=== PATIENT | male | born 1980 | race Caucasian/White ===

== ENCOUNTER 2016-11-25 17:19 | Emergency (ER) | payer OTHER ==
[~2016-11-25 17:19] MED LIST: AUGM875T PO; CYCL1TAB29 PO; PERC5TAB12 PO
[2016-11-25 17:25] VITALS: BP 154/102; PULSE 102; RESP 0; RESP 18; TEMP 98.4
[2016-11-25] MEDS ORDERED: PERC7.5T13 PO ×2 (17:43→22:06)
[2016-11-25] MEDS ORDERED: TAMS0.4C4 PO (17:43)
[2016-11-25] MEDS ORDERED: LISI10TA3 PO (17:43)
[2016-11-25 17:44] VITALS: BP 152/87; PULSE 99; RESP 18; O2SAT 100
[2016-11-25] MEDS ORDERED: SODIUM CHLOR 0.9% 1000 ML INJ 1,000 ML IV SCH (17:59)
[2016-11-25] MEDS ORDERED: KETOROLAC TROMETHAMINE 30 MG/ML (IVP) VIAL IVP ONE (18:00)
[2016-11-25] MEDS ORDERED: SODIUM CHLORIDE 0.9% FLUSH 10 ML FLUSH IV FLUSH PRN (18:00)
[2016-11-25] MEDS ORDERED: ONDANSETRON HCL 4 MG/2 ML VIAL IVP ONE (18:00)
--- NOTE | 2016-11-25 18:11 | PD ---
HPI Chief Complaint: Flank/Kidney Pain Time Seen by Provider: 17:52 Travel History International Travel<30 days: No Contact w/Intl Traveler<30days: No Traveled to known affect area: No History of Present Illness HPI 36yo M with PMH of HTN presents to the ED with c/o bilateral back pain that radiates to the lower abdomen for 3 days. States pain is intermittent and associated with dysuria, hematuria. Pt saw his PMD 2 days ago and was given oxycodone which helped with the pain. States he finished his last oxycodone this morning and was told to come to ED if still in pain for CT scan. Pt was also given flomax. Denies any fever, chest pain, sob, n/v, testicular pain, penile discharge or rash. PFSH Past Medical History Diminished Hearing: No Hypertension: Yes (controlled with meds) Musculoskeletal: Yes (back) Tetanus Vaccination: < 5 Years Influenza Vaccination: No Social History Alcohol Use: Yes Tobacco Use: Yes (1 ppd) Substance Use: No Allergies-Medications (Allergen,Severity, Reaction): Coded Allergies: No Known Allergies (Unverified , 11/25/16) Reported Meds & Prescriptions Reported Meds & Active Scripts Active Ibuprofen 800 Mg Tab 800 Mg PO TID Prochlorperazine Maleate 10 Mg Tab 10 Mg PO Q6H PRN Percocet (Oxycodone-Acetaminophen) 7.5-325 mg Tab 1 Tab PO Q4H PRN Reported Percocet (Oxycodone-Acetaminophen) 7.5-325 mg Tab 1 Tab PO Q6H PRN Tamsulosin (Tamsulosin HCl) 0.4 Mg Cap Unknown Dose PO HS Lisinopril 10 Mg Tab 10 Mg PO DAILY Review of Systems Except as stated in HPI: all other systems reviewed are Neg Physical Exam Narrative GENERAL: 36yo M in mild distress. SKIN: Focused skin assessment warm/dry. HEAD: Atraumatic. Normocephalic. CARDIOVASCULAR: Regular rate and rhythm. No murmur appreciated. RESPIRATORY: No accessory muscle use. Clear to auscultation. Breath sounds equal bilaterally. GASTROINTESTINAL: Abdomen soft, +TTP suprapubic, bilateral lower abdomen. No rebound tenderness or guarding. BACK: +CVA right. MUSCULOSKELETAL: No obvious deformities. No clubbing. No cyanosis. No edema. NEUROLOGICAL: Awake and alert. No obvious cranial nerve deficits. Motor grossly within normal limits. Normal speech. PSYCHIATRIC: Appropriate mood and affect; insight and judgment normal. Data Data Last Documented VS Vital Signs Date Time Temp Pulse Resp B/P (MAP) Pulse Ox O2 Delivery O2 Flow Rate FiO2 11/25/16 22:46 76 20 139/74 (95) 98 11/25/16 19:30 98.6 11/25/16 17:44 Room Air Orders Orders Complete Blood Count With Diff (11/25/16 17:59) Comprehensive Metabolic Panel (11/25/16 17:59) Lipase (11/25/16 17:59) Urinalysis - C+S If Indicated (11/25/16 17:59) Ct Abd/Pel W/O Iv Contrast (11/25/16 17:59) Iv Access Insert/Monitor (11/25/16 17:59) Ecg Monitoring (11/25/16 17:59) Oximetry (11/25/16 17:59) Ondansetron Inj (Zofran Inj) (11/25/16 18:00) Sodium Chlor 0.9% 1000 Ml Inj (Ns 1000 M (11/25/16 17:59) Sodium Chloride 0.9% Flush (Ns Flush) (11/25/16 18:00) Ketorolac Inj (Toradol Inj) (11/25/16 18:00) Morphine Inj (Morphine Inj) (11/25/16 19:00) Potassium Chloride (Kcl) (11/25/16 19:00) Labs Laboratory Tests Test 11/25/16 18:05 White Blood Count 8.6 TH/MM3 Red Blood Count 4.72 MIL/MM3 Hemoglobin 14.2 GM/DL Hematocrit 41.3 % Mean Corpuscular Volume 87.5 FL Mean Corpuscular Hemoglobin 30.0 PG Mean Corpuscular Hemoglobin Concent 34.3 % Red Cell Distribution Width 11.6 % Platelet Count 233 TH/MM3 Mean Platelet Volume 8.7 FL Neutrophils (%) (Auto) 63.8 % Lymphocytes (%) (Auto) 28.8 % Monocytes (%) (Auto) 4.8 % Eosinophils (%) (Auto) 1.3 % Basophils (%) (Auto) 1.3 % Neutrophils # (Auto) 5.5 TH/MM3 Lymphocytes # (Auto) 2.5 TH/MM3 Monocytes # (Auto) 0.4 TH/MM3 Eosinophils # (Auto) 0.1 TH/MM3 Basophils # (Auto) 0.1 TH/MM3 CBC Comment DIFF FINAL Differential Comment Urine Collection Type CLEAN CATCH Urine Color YELLOW Urine Turbidity CLEAR Urine pH 6.0 Urine Specific [place] 1.014 Urine Protein NEG mg/dL Urine Glucose (UA) NEG mg/dL Urine Ketones NEG mg/dL Urine Occult Blood TRACE Urine Nitrite NEG Urine Bilirubin NEG Urine Leukocyte Esterase NEG Urine RBC 0-3 /hpf Urine WBC 0-2 /hpf Microscopic Urinalysis Comment CULT NOT INDICATED Urine Collection Time 1805 Blood Urea Nitrogen 11 MG/DL Creatinine 0.62 MG/DL Random Glucose 96 MG/DL Total Protein 7.7 GM/DL Albumin 4.0 GM/DL Calcium Level 9.2 MG/DL Alkaline Phosphatase 53 U/L Aspartate Amino Transf (AST/SGOT) 15 U/L Alanine Aminotransferase (ALT/SGPT) 31 U/L Total Bilirubin 0.2 MG/DL Sodium Level 136 MEQ/L Potassium Level 3.2 MEQ/L Chloride Level 101 MEQ/L Carbon Dioxide Level 25.9 MEQ/L Anion Gap 9 MEQ/L Estimat Glomerular Filtration Rate 147 ML/MIN Lipase 125 U/L [facility] Medical Decision Making Medical Screen Exam Complete: Yes Emergency Medical Condition: Yes Differential Diagnosis Nephrolithiasis vs. pyelonephritis vs. colitis Narrative Course 36yo M with intermittent back pain that radiates to abdomen, dysuria, hematuria here for evaluation of possible kidney stone. Will do labs, UA, CTa/p- and start with toradol, zofran and NS IVF. Labs reviewed, no leukocytosis. K: 3.2 , will replace orally. Lipase normal. CMP unremarkable. UA showed trace blood. Culture not indicated. Pt reevaluated at bedside and still with pain, will give morphine IV. Pt is pending CT a/p- at the end of my shift and sign out to next team Dr. King to follow up CT results and reevaluate. Diagnosis Primary Impression: Abdominal pain Qualified Codes: R10.30 - Lower abdominal pain, unspecified Scripts Ibuprofen (Ibuprofen) 800 Mg Tab 800 MG PO TID, #30 TAB 0 Refills Prov: Abel King MD 11/25/16 Prochlorperazine Maleate (Prochlorperazine Maleate) 10 Mg Tab 10 MG PO Q6H Y for NAUSEA OR VOMITING, #30 TAB 0 Refills Prov: Abel King MD 11/25/16 Oxycodone-Acetaminophen (Percocet) 7.5-325 mg Tab 1 TAB PO Q4H Y for PAIN, #30 TAB 0 Refills Prov: Abel King MD 11/25/16 Francheska Rodgers DO Nov 25, 2016 18:11
[2016-11-25 18:16] LABS: AUTOMATED NEUTROPHIL # 5.5 TH/MM3 (1.8-7.7); BASOPHIL # 0.1 TH/MM3 (0-0.2); BASOPHIL % 1.3 % (0.0-2.0); EOSINOPHIL # 0.1 TH/MM3 (0-0.4); EOSINOPHIL % 1.3 % (0.0-4.0); HEMATOCRIT 41.3 % (39.0-51.0); HEMO FLAGS DIFF FINAL; LYMPH % 28.8 % (9.0-44.0); LYMPHOCYTE # 2.5 TH/MM3 (1.0-4.8); MEAN CELL VOLUME 87.5 FL (80.0-100.0); MEAN CORPUSCULAR HGB CONC 34.3 % (32.0-36.0); MONO % 4.8 % (0.0-8.0); NEUT % 63.8 % (16.0-70.0); PLATELET COUNT 233 TH/MM3 (150-450); RED BLOOD COUNT 4.72 MIL/MM3 (4.50-5.90); RED CELL DISTRIBUTION WIDTH 11.6 % (11.6-17.2); WHITE BLOOD COUNT 8.6 TH/MM3 (4.0-11.0)
[2016-11-25 18:19] LABS: BLOOD, URINE TRACE (NEG); GLUCOSE,URINE NEG (NEG); KETONE, URINE NEG (NEG); NITRITE,URINE NEG (NEG)
[2016-11-25 18:20] LABS: CHLORIDE 101 MEQ/L (98-107); POTASSIUM 3.2 MEQ/L (3.5-5.1); SODIUM (NA) 136 MEQ/L (136-145)
[2016-11-25 18:24] LABS: ANION GAP 9 MEQ/L (5-15); BICARBONATE 25.9 MEQ/L (21.0-32.0); BLOOD UREA NITROGEN 11 MG/DL (7-18)
[2016-11-25 18:26] LABS: ALT (GPT) 31 U/L (12-78)
[2016-11-25 18:27] LABS: AST (GOT) 15 U/L (15-37); GLOMERULAR FILTRATION RATE 147 ML/MIN (>89)
[2016-11-25 18:28] LABS: TOTAL BILIRUBIN ADULT 0.2 MG/DL (0.2-1.0)
[2016-11-25 18:29] LABS: ALKALINE PHOSPHATASE 53 U/L (45-117)
[2016-11-25 18:33] LABS: METHOD OF COLLECTION CLEAN CATCH; URINE COLOR YELLOW (YELLW/STRAW)
[2016-11-25 18:34] LABS: COMMENT (UR) CULT NOT INDICATED; CULTURE IF INDICATED CULT NOT INDICATED; RBC, URINE 0-3 /hpf (0-3); WBC, URINE 0-2 /hpf (0-5)
[2016-11-25] MEDS ORDERED: MORPHINE SULFATE 8 MG/ML INJ IV PUSH ONE (19:00)
[2016-11-25] MEDS ORDERED: POTASSIUM CHLORIDE 20 MEQ CONTROLLED RELEASE TAB PO ONE (19:00)
[2016-11-25 19:30] VITALS: BP 140/117; PULSE 88; RESP 20; TEMP 98.6; O2SAT 100
--- NOTE | 2016-11-25 19:56 | RADRPT ---
EXAM DATE/TIME: 11/25/2016 19:06 [facility] COMPARISON: No previous studies available for comparison. INDICATIONS : Right flank pain with hematuria. ORAL CONTRAST: No oral contrast ingested. RADIATION DOSE: 25.83 CTDIvol (mGy) ; Patient body habitus; High dose protocol MEDICAL HISTORY : Hypertension. SURGICAL HISTORY : None. ENCOUNTER: Initial ACUITY: 3 days PAIN SCALE: 8/10 LOCATION: Bilateral flank abdomen TECHNIQUE: Volumetric scanning of the abdomen and pelvis was performed. Using automated exposure control and ad justment of the mA and/or kV according to patient size, radiation dose was kept as low as reasonably achievable to obtain optimal diagnostic quality images. DICOM format image data is available electro nically for review and comparison. FINDINGS: LOWER LUNGS: The visualized lower lungs are clear. LIVER: Homogeneous density without lesion. There is no dilation of the biliary tree. No calcified gallston es. SPLEEN: Normal size without lesion. PANCREAS: Within normal limits. KIDNEYS: No renal stones or hydronephrosis is seen. The ureters are normal in size. There is a 5 mm calcificat ion seen in the right upper pelvis. This appears to be adjacent to the right ureter. It is seen in ve ry close proximity to the right ureter. On the source images, it appears likely separate from the rig ht ureter. ADRENAL GLANDS: Within normal limits. VASCULAR: There is no aortic aneurysm. BOWEL/MESENTERY: The stomach, small bowel, and colon demonstrate no acute abnormality. There is no free intraperitone al air or fluid. There a few scattered colonic diverticula. ABDOMINAL WALL: Within normal limits. RETROPERITONEUM: There is no lymphadenopathy. BLADDER: No wall thickening or mass. REPRODUCTIVE: Within normal limits. INGUINAL: There is no lymphadenopathy or hernia. MUSCULOSKELETAL: Within normal limits for patient age. CONCLUSION: 1. No renal stones are seen. There is no hydronephrosis or hydroureter. There is a 5 mm calcification in the right upper pelvis seen in very close proximity to the right ureter. It is thought this is li keven separate from the right ureter although it is difficult to make this distinction. 2. Scattered colonic diverticula without inflammatory change. Roly Pavon MD on November 25, 2016 at 19:47 Board Certified Radiologist. This report was verified electronically.
[2016-11-25 20:03] VITALS: BP 140/69; PULSE 88; RESP 20; O2SAT 100
--- NOTE | 2016-11-25 21:54 | PD ---
Physical Exam Time Seen by Provider: 21:[address] Rodgers with this patient for me to check the CT scan and make a disposition. Data Data Last Documented VS Vital Signs Date Time Temp Pulse Resp B/P (MAP) Pulse Ox O2 Delivery O2 Flow Rate FiO2 11/25/16 20:03 88 20 140/69 (92) 100 11/25/16 19:30 98.6 11/25/16 17:44 Room Air Orders Orders Complete Blood Count With Diff (11/25/16 17:59) Comprehensive Metabolic Panel (11/25/16 17:59) Lipase (11/25/16 17:59) Urinalysis - C+S If Indicated (11/25/16 17:59) Ct Abd/Pel W/O Iv Contrast (11/25/16 17:59) Iv Access Insert/Monitor (11/25/16 17:59) Ecg Monitoring (11/25/16 17:59) Oximetry (11/25/16 17:59) Ondansetron Inj (Zofran Inj) (11/25/16 18:00) Sodium Chlor 0.9% 1000 Ml Inj (Ns 1000 M (11/25/16 17:59) Sodium Chloride 0.9% Flush (Ns Flush) (11/25/16 18:00) Ketorolac Inj (Toradol Inj) (11/25/16 18:00) Morphine Inj (Morphine Inj) (11/25/16 19:00) Potassium Chloride (Kcl) (11/25/16 19:00) Labs Laboratory Tests Test 11/25/16 18:05 White Blood Count 8.6 TH/MM3 Red Blood Count 4.72 MIL/MM3 Hemoglobin 14.2 GM/DL Hematocrit 41.3 % Mean Corpuscular Volume 87.5 FL Mean Corpuscular Hemoglobin 30.0 PG Mean Corpuscular Hemoglobin Concent 34.3 % Red Cell Distribution Width 11.6 % Platelet Count 233 TH/MM3 Mean Platelet Volume 8.7 FL Neutrophils (%) (Auto) 63.8 % Lymphocytes (%) (Auto) 28.8 % Monocytes (%) (Auto) 4.8 % Eosinophils (%) (Auto) 1.3 % Basophils (%) (Auto) 1.3 % Neutrophils # (Auto) 5.5 TH/MM3 Lymphocytes # (Auto) 2.5 TH/MM3 Monocytes # (Auto) 0.4 TH/MM3 Eosinophils # (Auto) 0.1 TH/MM3 Basophils # (Auto) 0.1 TH/MM3 CBC Comment DIFF FINAL Differential Comment Urine Collection Type CLEAN CATCH Urine Color YELLOW Urine Turbidity CLEAR Urine pH 6.0 Urine Specific [place] 1.014 Urine Protein NEG mg/dL Urine Glucose (UA) NEG mg/dL Urine Ketones NEG mg/dL Urine Occult Blood TRACE Urine Nitrite NEG Urine Bilirubin NEG Urine Leukocyte Esterase NEG Urine RBC 0-3 /hpf Urine WBC 0-2 /hpf Microscopic Urinalysis Comment CULT NOT INDICATED Urine Collection Time 1805 Blood Urea Nitrogen 11 MG/DL Creatinine 0.62 MG/DL Random Glucose 96 MG/DL Total Protein 7.7 GM/DL Albumin 4.0 GM/DL Calcium Level 9.2 MG/DL Alkaline Phosphatase 53 U/L Aspartate Amino Transf (AST/SGOT) 15 U/L Alanine Aminotransferase (ALT/SGPT) 31 U/L Total Bilirubin 0.2 MG/DL Sodium Level 136 MEQ/L Potassium Level 3.2 MEQ/L Chloride Level 101 MEQ/L Carbon Dioxide Level 25.9 MEQ/L Anion Gap 9 MEQ/L Estimat Glomerular Filtration Rate 147 ML/MIN Lipase 125 U/L [facility] Medical Record Reviewed: Yes Supervised Visit with MICHAEL: Yes Interpretation(s) The CT abdomen/pelvis without IV contrast shows no renal stones or hydronephrosis. There is a 5 mm calcification in the right upper pelvis very close proximity to the right ureter and this may be actually in the right ureter. Differential Diagnosis Urinary stone pain-ureteral stone, urinary tract infection, Narrative Course The patient has a urinary stone that is very near the proximal ureter. I will assume that the pain is caused by this stone. It may actually be in the ureter according to the radiologist. The patient will be given Percocet, ibuprofen and Compazine. He already has Flomax at home and does not need a prescription for that. He will follow-up with the primary care physician/[facility] urologist Additional Instruction: The Phenergan is for nausea and it is every 6 hours as necessary. Take the Motrin regularly, 1 tablet 3 times daily. Do not drink alcohol or drive on the Percocet or the Phenergan. Follow-up with the [facility] urologist as soon as possible. Med/Other Pt SpecificInfo: Prescription(s) given Scripts Ibuprofen (Ibuprofen) 800 Mg Tab 800 MG PO TID, #30 TAB 0 Refills Prov: Abel King MD 11/25/16 Prochlorperazine Maleate (Prochlorperazine Maleate) 10 Mg Tab 10 MG PO Q6H Y for NAUSEA OR VOMITING, #30 TAB 0 Refills Prov: Abel King MD 11/25/16 Oxycodone-Acetaminophen (Percocet) 7.5-325 mg Tab 1 TAB PO Q4H Y for PAIN, #30 TAB 0 Refills Prov: Abel King MD 11/25/16 Disposition: 01 DISCHARGE HOME Condition: Stable Abel King MD Nov 25, 2016 21:54
[2016-11-25] MEDS ORDERED: IBUP800T23 PO (22:06)
[2016-11-25] MEDS ORDERED: PROC10TA PO (22:06)
[2016-11-25 22:46] VITALS: BP 139/74
== END 2016-11-25 22:48 | disposition home or self-care (01) ==
LOC: PHED 17:19
DX: N20.1 Calculus of ureter (principal); R30.0 Dysuria
CPT/HCPCS: 74176; 80053; 81001; 83690; 85025; 96361; 96374; 96375; 99285; J1885; J2270; J2405; J7030

== ENCOUNTER 2017-03-15 23:48 | Emergency (ER) | payer OTHER ==
[~2017-03-15] VITALS: Ht 177.8 cm; Wt 101.0 kg
[~2017-03-15 23:48] MED LIST changes: -AUGM875T PO; -CYCL1TAB29 PO; +IBUP1TAB7 PO; +LISI10TA3 PO; -PERC5TAB12 PO; +PERC7.5T13 PO; +PROC10TA PO; +TAMS0.4C4 PO
[2017-03-16 00:05] VITALS: BP 120/61; PULSE 102; RESP 16; TEMP 99; O2SAT 98
[2017-03-16] MEDS ORDERED: LISI-515 PO (01:08)
[2017-03-16] MEDS ORDERED: LIPI10TA PO (01:08)
[2017-03-16] MEDS ORDERED: SODIUM CHLORIDE 0.9% FLUSH 10 ML FLUSH IV FLUSH PRN (02:00)
[2017-03-16 02:03] VITALS: BP 120/66; PULSE 90; O2SAT 97
--- NOTE | 2017-03-16 02:49 | RADRPT ---
EXAM DATE/TIME: 03/16/2017 02:11 [facility] COMPARISON: No previous studies available for comparison. INDICATIONS : Syncope. RADIATION DOSE: 50.97 CTDIvol (mGy) MEDICAL HISTORY : Hypertension. SURGICAL HISTORY : None. ENCOUNTER: Initial ACUITY: 1 day PAIN SCALE: 0/10 LOCATION: Right frontal TECHNIQUE: Multiple contiguous axial images were obtained of the head. Using automated exposure control and adj ustment of the mA and/or kV according to patient size, radiation dose was kept as low as reasonably a chievable to obtain optimal diagnostic quality images. DICOM format image data is available electro nically for review and comparison. FINDINGS: CEREBRUM: The ventricles are normal for age. No evidence of midline shift, mass lesion, hemorrhage or acute in farction. No extra-axial fluid collections are seen. POSTERIOR FOSSA: The cerebellum and brainstem are intact. The 4th ventricle is midline. The cerebellopontine angle i s unremarkable. EXTRACRANIAL: The visualized portion of the orbits is intact. SKULL: The calvaria is intact. No evidence of skull fracture. CONCLUSION: 1. Negative noncontrast CT brain. Po Stratton MD on March 16, 2017 at 2:47 Board Certified Radiologist. This report was verified electronically.
[2017-03-16 02:51] LABS: AUTOMATED NEUTROPHIL # 7.6 TH/MM3 (1.8-7.7); BASOPHIL % 0.3 % (0.0-2.0); EOSINOPHIL % 0.1 % (0.0-4.0); HEMATOCRIT 39.5 % (39.0-51.0); HEMOGLOBIN 13.1 GM/DL (13.0-17.0); LYMPH % 8.9 % (9.0-44.0); LYMPHOCYTE # 0.8 TH/MM3 (1.0-4.8); MEAN CELL VOLUME 91.1 FL (80.0-100.0); MEAN PLATELET VOLUME 9.2 FL (7.0-11.0); MONO % 8.7 % (0.0-8.0); MONOCYTE # 0.8 TH/MM3 (0-0.9); PLATELET COUNT 231 TH/MM3 (150-450); RED BLOOD COUNT 4.34 MIL/MM3 (4.50-5.90); RED CELL DISTRIBUTION WIDTH 12.4 % (11.6-17.2); WHITE BLOOD COUNT 9.2 TH/MM3 (4.0-11.0)
--- NOTE | 2017-03-16 02:52 | RADRPT ---
EXAM DATE/TIME: 03/16/2017 02:15 [facility] COMPARISON: CT ABDOMEN & PELVIS W/O CONTRAST, November 25, 2016, 19:06. INDICATIONS : Right abdominal pain. ORAL CONTRAST: No oral contrast ingested. RADIATION DOSE: 18.99 CTDIvol (mGy) MEDICAL HISTORY : Hypertension. Renal calculi. SURGICAL HISTORY : None. ENCOUNTER: Initial ACUITY: 1 day PAIN SCALE: 4/10 LOCATION: Right flank TECHNIQUE: Renal colic protocol. Volumetric scanning of the abdomen and pelvis was performed. Using automated exposure control and adjustment of the mA and/or kV according to patient size, radiation dose was kep t as low as reasonably achievable to obtain optimal diagnostic quality images. DICOM format image da ta is available electronically for review and comparison. FINDINGS: Right side: No calcified collecting system stones, no evidence of hydronephrosis or dilatation of the ureter. A 4 mm calcification in the right deep pelvis as seen on axial image #116 was present on prior CT in 2016 and is located posterior and separate from the right ureter. Left side: No calcified stones in the collecting system or ureter. No evidence of hydronephrosis. Bladder: Smooth margins. No calcifications within the lumen. Other: No dilated loops of small or large bowel. The appendix is identified in the right lower quadrant and has a normal appearance. No calcified gallstones. No evidence of free fluid. CONCLUSION: Negative renal colic CT. Solitary calcification in the right pelvis is located posterior and separat e from the ureter. Po Stratton MD on March 16, 2017 at 2:47 Board Certified Radiologist. This report was verified electronically.
[2017-03-16 03:11] LABS: BILIRUBIN, URINE NEG (NEG); BLOOD, URINE NEG (NEG); GLUCOSE,URINE NEG (NEG); KETONE, URINE NEG (NEG); NITRITE,URINE NEG (NEG); PH, URINE 5.5 (5.0-8.5); URINE LEUKOCYTE ESTERASE NEG (NEG)
[2017-03-16 03:20] LABS: CHLORIDE 99 MEQ/L (98-107); SODIUM (NA) 132 MEQ/L (136-145)
[2017-03-16 03:22] LABS: URINE COLOR YELLOW (YELLW/STRAW)
[2017-03-16 03:23] LABS: BICARBONATE 24.6 MEQ/L (21.0-32.0); CALCIUM 9.2 MG/DL (8.5-10.1); GLUCOSE,RANDOM 98 MG/DL (74-106); HYALINE CAST, URINE 15-19 /lpf (RARE); MUCUS URINE MOD /lpf (OCC); SQUAMOUS EPITHELIAL CELL URINE 0-5 /hpf (0-5); WBC, URINE 0-2 /hpf (0-5)
[2017-03-16 03:24] LABS: AMORPHOUS SEDIMENT, URINE SMALL; BLOOD UREA NITROGEN 24 MG/DL (7-18)
[2017-03-16 03:26] LABS: ALT (GPT) 38 U/L (12-78)
[2017-03-16 03:27] LABS: AST (GOT) 22 U/L (15-37); CREATININE 0.97 MG/DL (0.60-1.30); GLOMERULAR FILTRATION RATE 88 ML/MIN (>89)
[2017-03-16 03:28] LABS: TOTAL BILIRUBIN ADULT 0.5 MG/DL (0.2-1.0)
[2017-03-16 03:29] LABS: ALKALINE PHOSPHATASE 54 U/L (45-117)
[2017-03-16 03:31] LABS: TROPONIN I LESS THAN 0.02 NG/ML (0.02-0.05)
[2017-03-16 03:34] VITALS: BP 110/65; PULSE 88; RESP 16; O2SAT 98
--- NOTE | 2017-03-16 04:23 | PD ---
HPI Chief Complaint: Syncope/Near-Syncope Time Seen by Provider: 01:54 Travel History International Travel<30 days: No Contact w/Intl Traveler<30days: No Traveled to known affect area: No History of Present Illness HPI PATIENT STATES THAT JUST PRIOR TO GOING TO TAKE A SHOWER HE FELT RUQ PAIN, SHARP , INTERMITTENT, GOING ALL DAY BUT FELT IT WHILE IN SHOWER...THAT'S THE LAST THING HE RECALLS. PATIENT'S WITNESSED IT AND DENIES ANY SEIZURE/TONIC CLONIC ACTIVITY. ONCE PATIENT BECAME AWARE (OUT FOR ABOUT 30 SECONDS).... PFSH Past Medical History Heart Rhythm Problems: Yes (PALPITATIONS) Diminished Hearing: No Hypertension: Yes (controlled with meds) Kidney Stones: Yes Musculoskeletal: Yes (back) Neurologic: Yes (DIZZINESS, NEAR SYNCOPE) Sleep Apnea: Yes Influenza Vaccination: Yes Past Surgical History Other Surgery: Yes (KIDNEY STONE REMOVAL) Social History Alcohol Use: Yes (OCC) Tobacco Use: Yes (1 ppd) Substance Use: No Allergies-Medications (Allergen,Severity, Reaction): Coded Allergies: No Known Allergies (Unverified Adverse Reaction, Unknown, 03/16/17) Reported Meds & Prescriptions Reported Meds & Active Scripts Active Ultram (Tramadol HCl) 50 Mg Tab 50 Mg PO Q6H PRN Reported Lipitor (Atorvastatin Calcium) 10 Mg Tab 10 Mg PO HS Lisinopril 20 Mg Tab 20 Mg PO DAILY Percocet (Oxycodone-Acetaminophen) 7.5-325 mg Tab 1 Tab PO Q6H PRN Review of Systems Except as stated in HPI: all other systems reviewed are Neg General / Constitutional: No: Fever Eyes: No: Visual changes HENT: No: Headaches Cardiovascular: Positive: Syncope Respiratory: No: Shortness of Breath Gastrointestinal: No: Abdominal Pain Genitourinary: No: Dysuria Musculoskeletal: No: Pain Skin: No Rash Neurologic: No: Weakness Psychiatric: No: Depression Endocrine: No: Polydipsia Hematologic/Lymphatic: No: Easy Bruising Physical Exam Narrative GENERAL: SKIN: Warm and dry. HEAD: Atraumatic. Normocephalic. EYES: Pupils equal and round. No scleral icterus. No injection or drainage. ENT: No nasal bleeding or discharge. Mucous membranes pink and moist. NECK: Trachea midline. No JVD. CARDIOVASCULAR: Regular rate and rhythm. RESPIRATORY: No accessory muscle use. Clear to auscultation. Breath sounds equal bilaterally. GASTROINTESTINAL: Abdomen soft, non-tender, nondistended.... MUSCULOSKELETAL: Extremities without clubbing, cyanosis, or edema. No obvious deformities. NEUROLOGICAL: Awake and alert. No obvious cranial nerve deficits. Motor grossly within normal limits. Five out of 5 muscle strength in the arms and legs. Normal speech. PSYCHIATRIC: Appropriate mood and affect; insight and judgment normal. Data Data Last Documented VS Orders Orders Electrocardiogram (03/16/17 01:54) Complete Blood Count With Diff (03/16/17 01:54) Comprehensive Metabolic Panel (03/16/17 01:54) Troponin I (03/16/17 01:54) Urinalysis - C+S If Indicated (03/16/17 01:54) Ct Brain W/O Iv Contrast(Rout) (03/16/17 01:54) Blood Glucose (03/16/17 01:54) Ecg Monitoring (03/16/17 01:54) Iv Access Insert/Monitor (03/16/17 01:54) Oximetry (03/16/17 01:54) Sodium Chloride 0.9% Flush (Ns Flush) (03/16/17 02:00) Drug Screen, Random Urine (03/16/17 01:54) Alcohol (Ethanol) (03/16/17 01:54) Tylenol (Acetaminophen) (03/16/17 01:54) Salicylates (Aspirin) (03/16/17 01:54) Ct Abd/Pel W/O Iv Contrast (03/16/17 01:55) Ed Discharge Order (03/16/17 04:23) Labs Laboratory Tests Test 03/16/17 02:00 03/16/17 03:00 White Blood Count 9.2 TH/MM3 Red Blood Count 4.34 MIL/MM3 Hemoglobin 13.1 GM/DL Hematocrit 39.5 % Mean Corpuscular Volume 91.1 FL Mean Corpuscular Hemoglobin 30.0 PG Mean Corpuscular Hemoglobin Concent 33.0 % Red Cell Distribution Width 12.4 % Platelet Count 231 TH/MM3 Mean Platelet Volume 9.2 FL Neutrophils (%) (Auto) 82.0 % Lymphocytes (%) (Auto) 8.9 % Monocytes (%) (Auto) 8.7 % Eosinophils (%) (Auto) 0.1 % Basophils (%) (Auto) 0.3 % Neutrophils # (Auto) 7.6 TH/MM3 Lymphocytes # (Auto) 0.8 TH/MM3 Monocytes # (Auto) 0.8 TH/MM3 Eosinophils # (Auto) 0.0 TH/MM3 Basophils # (Auto) 0.0 TH/MM3 CBC Comment DIFF FINAL Differential Comment Salicylates Level 3.5 MG/DL Urine Color YELLOW Urine Turbidity CLEAR Urine pH 5.5 Urine Specific [place] 1.031 Urine Protein NEG mg/dL Urine Glucose (UA) NEG mg/dL Urine Ketones NEG mg/dL Urine Occult Blood NEG Urine Nitrite NEG Urine Bilirubin NEG Urine Leukocyte Esterase NEG Urine WBC 0-2 /hpf Urine Squamous Epithelial Cells 0-5 /hpf Urine Amorphous Sediment SMALL Urine Hyaline Casts 15-19 /lpf Urine Mucus MOD /lpf Microscopic Urinalysis Comment CULT NOT INDICATED Blood Urea Nitrogen 24 MG/DL Creatinine 0.97 MG/DL Random Glucose 98 MG/DL Total Protein 8.0 GM/DL Albumin 4.0 GM/DL Calcium Level 9.2 MG/DL Alkaline Phosphatase 54 U/L Aspartate Amino Transf (AST/SGOT) 22 U/L Alanine Aminotransferase (ALT/SGPT) 38 U/L Total Bilirubin 0.5 MG/DL Sodium Level 132 MEQ/L Potassium Level 4.0 MEQ/L Chloride Level 99 MEQ/L Carbon Dioxide Level 24.6 MEQ/L Anion Gap 8 MEQ/L Estimat Glomerular Filtration Rate 88 ML/MIN Troponin I LESS THAN 0.02 NG/ML Urine Opiates Screen NEG Acetaminophen Level LESS THAN 2.0 MCG/ML Urine Barbiturates Screen NEG Urine Amphetamines Screen NEG Urine Benzodiazepines Screen NEG Urine Cocaine Screen NEG Urine Cannabinoids Screen POS Ethyl Alcohol Level LESS THAN 3 MG/DL [facility] Medical Decision Making Medical Screen Exam Complete: Yes Emergency Medical Condition: Yes Medical Record Reviewed: Yes Differential Diagnosis biliary colic v pancreaitis v cholecystitis v gastritis v anemia Narrative Course no e/o pancreatitis, anemia at this time....clinically based on clinical findings and history biliary colic is most likely culprit of symptoms....recc outpatient evaluation by general surgeon and possible dedicated ruq ultrasound in the event that gallstones are cholesterol type. Diagnosis Primary Impression: BILIARY COLIC Additional Impression: VASOVAGAL SYNCOPE Referrals: Luis Hilario MD FOR FURTEHR EVALUATION OF YOUR RIGHT QUADRANT PAIN, CONSISTENT WITH GALLBLADDER DISEASE Patient Instructions: Biliary Colic (DC), General Instructions, Syncope (ED) Scripts Tramadol (Ultram) 50 Mg Tab 50 MG PO Q6H Y for PAIN, #14 TAB 0 Refills Prov: Bernabe Lee MD 03/16/17 Disposition: 01 DISCHARGE HOME Condition: Stable Bernabe Lee MD Mar 16, 2017 04:23
[2017-03-16] MEDS ORDERED: TRAM50 PO (04:25)
[2017-03-16 04:59] LABS: ACETAMINOPHEN LESS THAN 2.0 MCG/ML (10.0-30.0)
--- NOTE | 2017-03-16 17:29 | EKG ---
Date Performed: 03/16/2017 Time Performed: 02:02:06 PTAGE: 36 years EKG: Sinus rhythm NORMAL ECG NO PREVIOUS TRACING DOCTOR: [place] Interpretating Date/Time 03/16/2017 17:24:10
== END 2017-03-16 04:45 | disposition home or self-care (01) ==
LOC: PHED 23:48
DX: K80.50 Calculus of bile duct without cholangitis or cholecystitis without obstruction (principal); R55 Syncope and collapse; I10 Essential (primary) hypertension; F17.210 Nicotine dependence, cigarettes, uncomplicated; Z87.442 Personal history of urinary calculi; Z79.899 Other long term (current) drug therapy
CPT/HCPCS: 70450; 74176; 80053; 80307; 81001; 84484; 85025; 93005; 99285